=== PATIENT | male | born 1990 | race Caucasian/White ===

== ENCOUNTER → 2018-08-04 | Outpatient (CLI) | payer OTHER ==
[~2018-08-04] MED LIST: NO HOME MEDICATIONS
== END ==
LOC: COL.LAB 14:04
DX: K21.9 Gastro-esophageal reflux disease without esophagitis (principal)

== ENCOUNTER → 2021-10-30 | Outpatient (CLI) | payer OTHER | LOC: COL.RAD 13:32 | DX: M54.2 Cervicalgia (principal); M79.89 Other specified soft tissue disorders | CPT/HCPCS: Q9967 ==